=== PATIENT | female | born 1945 | race Caucasian/White ===

== ENCOUNTER 2019-06-09 07:30 | Inpatient (IN) | payer MEDICARE, OTHER ==
[2019-07-30 11:41] LABS: ABSOLUTE EOSINOPHILS # (AUTO) 0.1 10^3/uL (0.0-0.6); ABSOLUTE LYMPHOCYTES (AUTO) 1.9 10^3/uL (0.5-4.7); ABSOLUTE MONOCYTES (AUTO) 0.4 10^3/uL (0.1-1.4); ABSOLUTE NEUT (AUTO) 3.7 10^3/uL (1.7-8.2); BASOPHILS % (AUTO) 0.6 % (0-2); EOSINOPHILS % (AUTO) 1.4 % (0-6); HEMATOCRIT 37.7 % (36.0-47.0); HEMOGLOBIN 12.7 g/dL (12.0-15.5); LYMPHOCYTES % (AUTO) 30.5 % (13-45); MEAN CORPUSCULAR HGB CONC 33.8 g/dL (32.0-36.0); MEAN CORPUSCULAR VOLUME 98 fl (80-97); MONOCYTES % (AUTO) 6.4 % (3-13); PLATELET COUNT 311 10^3/uL (150-450); RED BLOOD COUNT 3.86 10^6/uL (3.72-5.28); RED CELL DISTRIBUTION WIDTH 13.9 % (11.5-14.0); SEGMENTED NEUTROPHILS % (AUTO) 61.1 % (42-78); TOTAL CELLS COUNTED % (AUTO) 100 %; WHITE BLOOD COUNT 6.1 10^3/uL (4.0-10.5)
[2019-07-30 11:59] LABS: ANION GAP 9 (5-19); BLOOD UREA NITROGEN 18 mg/dL (7-20); CALCIUM 9.9 mg/dL (8.4-10.2); CARBON DIOXIDE 29 mmol/L (22-30); CHLORIDE 101 mmol/L (98-107); GLUCOSE 103 mg/dL (75-110); POTASSIUM 4.6 mmol/L (3.6-5.0)
--- NOTE | 2019-07-30 13:01 | RADIOLOGY REPORT (SQ) ---
EXAM DESCRIPTION: CHEST PA/LATERAL IMAGES COMPLETED DATE/TIME: 07/30/2019 11:40 am REASON FOR STUDY: PRE-OP COMPARISON: None. EXAM PARAMETERS: NUMBER OF VIEWS: two views TECHNIQUE: Digital Frontal and Lateral radiographic views of the chest acquired. RADIATION DOSE: NA LIMITATIONS: none FINDINGS: LUNGS AND PLEURA: No opacities, masses or pneumothorax. No pleural effusion. MEDIASTINUM AND HILAR STRUCTURES: Deviation of the trachea to the right. HEART AND VASCULAR STRUCTURES: Heart normal size. No evidence for failure. BONES: No acute findings. HARDWARE: None in the chest. OTHER: No other significant finding. IMPRESSION: NO ACUTE RADIOGRAPHIC FINDING IN THE CHEST. THERE IS DEVIATION OF THE TRACHEA TO THE RI GHT. THIS MAY BE DUE TO SUBSTERNAL THYROID OR OTHER SOFT TISSUE MASS. MAY CONSIDER CT OF THE CHEST AND NECK FOR FURTHER EVALUATION. TECHNICAL DOCUMENTATION: JOB ID: [id number] 2010 [employer] All Rights Reserved Reading location - IP/workstation name: [email or web address]
--- NOTE | 2019-07-30 19:00 | EKG REPORT ---
SEVERITY:- OTHERWISE NORMAL ECG - SINUS RHYTHM BORDERLINE LEFT AXIS DEVIATION : Confirmed by: Jada Steven MD 30-Jul-2019 18:59:23
[2019-08-04] MEDS ORDERED: CEFAZOLIN 2 GM/D5W RTU 2 GM/50 ML RTUPB IV PRN (05:00)
[2019-08-04] MEDS ORDERED: LACTATED RINGERS 1000 ML IV PRN (05:00)
[2019-08-04] MEDS ORDERED: LIDOCAINE 0.5% INJ-PF (5 MG/ML) 50 ML SDV SUBCUT PRN (05:00)
[2019-08-04] MEDS ORDERED: CEFAZOLIN 2 GM/D5W RTU 2 GM/50 ML RTUPB IV ONE (05:18)
[2019-08-04] MEDS ORDERED: BUPIVACAINE INJ/PF LIPOSOME/PF 266 MG/20 ML SDV ONE (06:47)
[2019-08-04] MEDS ORDERED: HEPARIN SOD (PORCINE) 1,000 UNIT/ML 10 ML VIAL ONE (06:47)
[2019-08-04] MEDS ORDERED: MINERAL OIL (STERILE) 10 ML VIAL ONE (06:47)
[2019-08-04] MEDS ORDERED: BACITRACIN INJ 50,000 UNIT VIAL ONE (06:47)
[2019-08-04] MEDS ORDERED: FENTANYL CITRATE INJ/PF 100 MCG/2 ML AMPUL ONE ×2 (07:01→10:23)
[2019-08-04] MEDS ORDERED: HYDROMORPHONE HCL INJ/PF 2 MG/ML AMPULE ONE (07:01)
[2019-08-04] MEDS ORDERED: MIDAZOLAM 2 MG/2 ML INJ ONE (07:01)
[2019-08-04] MEDS ORDERED: LIDOCAINE 2% INJ-PF (20 MG/ML) 10 ML AMPUL ONE (07:01)
[2019-08-04] MEDS ORDERED: PROPOFOL 0 MG/0 ML INFUS..BTL IV ONE (07:02)
[2019-08-04] MEDS ORDERED: ONDANSETRON HCL INJ/PF 4 MG/2 ML SDV ONE ×2 (07:02→14:07)
[2019-08-04] MEDS ORDERED: DEXAMETHASONE SOD PHOSPHATE INJ 4 MG/1 ML VIAL ONE (07:02)
[2019-08-04] MEDS ORDERED: PROPOFOL INJ 200 MG/20 ML VIAL IV ONE (07:02)
[2019-08-04] MEDS ORDERED: PROPOFOL 1,000 MG/100 ML INFUS..BTL IV ONE (07:15)
[2019-08-04] MEDS ORDERED: GLUCAGON,HUMAN RECOMB 1 MG INJ IM PRN (07:43)
[2019-08-04] MEDS ORDERED: DEXTROSE 40% GEL 15 GM TUBE PO PRN ×2 (07:43)
[2019-08-04] MEDS ORDERED: DEXTROSE 50%-WATER 25 GM/50 ML DISP.SYRIN IV PRN ×2 (07:43)
[2019-08-04] MEDS ORDERED: MORPHINE SULFATE 10 MG/ML INJ IV PRN ×2 (07:47→07:51)
[2019-08-04] MEDS ORDERED: OXYCODONE-ACETAMINOPHEN 5-325 MG TABLET PO PRN ×2 (07:47)
[2019-08-04] MEDS ORDERED: PROMETHAZINE HCL INJ 25 MG/1 ML VIAL IV PRN ×2 (07:47)
[2019-08-04] MEDS ORDERED: FENTANYL CITRATE INJ/PF 100 MCG/2 ML AMPUL IV PRN ×3 (07:47)
[2019-08-04] MEDS ORDERED: MEPERIDINE HCL/PF INJ 25 MG/1 ML DISP.SYRIN IV PRN (07:47)
[2019-08-04] MEDS ORDERED: ACETAMINOPHEN 325 MG TABLET PO PRN (07:51)
[2019-08-04] MEDS ORDERED: HYDROCODONE/ACETAMINOPHEN 5-325 MG TABLET PO PRN (07:51)
[2019-08-04] MEDS ORDERED: ACETAMINOPHEN 650 MG SUPP.RECT PR PRN (07:58)
[2019-08-04] MEDS ORDERED: PROMETHAZINE HCL 25 MG TABLET PO PRN (07:58)
[2019-08-04] MEDS ORDERED: DIPHENHYDRAMINE HCL 25 MG CAPSULE PO PRN (07:58)
[2019-08-04] MEDS ORDERED: DIPHENHYDRAMINE HCL 50 MG/ML VIAL IV PRN (07:58)
[2019-08-04] MEDS ORDERED: BUPIVACAINE HCL 0.5 % INJ/PF 30 ML SDV ONE (08:12)
[2019-08-04] MEDS ORDERED: ACETAMINOPHEN 1,000 MG/100 ML RTUPB IV ONE (09:51)
[2019-08-04] MEDS ORDERED: METHOCARBAMOL INJ/PF 1000 MG/10 ML SDV ONE (09:59)
--- NOTE | 2019-08-04 10:30 | Operative Report ---
Operative Report DATE OF SURGERY: 08/04/19 PREOPERATIVE DIAGNOSIS: L4 5 spondylolisthesis stenosis generative disc disease back pain and radiculitis POSTOPERATIVE DIAGNOSIS: L4 5 spondylolisthesis stenosis generative disc disease back pain and radiculitis OPERATION: L4-5 anterior lateral interbody fusion with interbody spacer placement left iliac crest aspiration through a separate incision for bone marrow aspirate concentration allografting as well as posterior fusion robotically assisted at L4-5 and instrumentation. SURGEON: VANESSA BOYLE EXPERIMENTAL MECHANIC ELECTRICAL: JESS DONOVAN ANESTHESIA: GA ESTIMATED BLOOD LOSS: 100 cc of blood loss PROCEDURE: Patient is brought into the room placed under general anesthesia received 2 g of Ancef within 1 hour of cut time was placed on the Javon table medial epicondyles and axillary areas are well-padded. Neuro monitoring leads for SSEP and cranial motor testing are placed on the patient as well as a Turner catheter is placed preoperatively. After appropriate surgical timeout the [employer] robot is utilized and on the right posterior superior iliac spine a pin is placed and attached to the robot. After obtaining registration imaging in the AP and oblique position and verification 6.5 x 45 mm screws are inserted using portal incisions on the right and the left at L4 and L5 bilaterally. Left iliac crest is aspirated at 2 different sites total of 50 cc of bone marrow aspirate are obtained and concentrated to be used an interbody spacer with the allograft. Attention was then paid to the left sided anterior lateral portal for entry into the disc space which is carried out under navigation guidance upon verification also with x-rays and then stimulation thresholds greater than 17 mA. Upon inserting the portal into the disc space at L4-5 fluoroscopy was used to verify the position as it did also to verify the screws position. Endplate romeo and curettes and brushes are used to carry out a complete discectomy then the verify balloon is inserted to verify good contact with the endplates. Then the appropriate size mesh spacer is introduced into the interbody. Incite Allograft is first inserted mixed with concentrate allograft and bone marrow aspirate.the mesh spacer is soaked in bone marrow aspirate concentrate and is filled with bone graft showing good correction and good containment within the disc space at L4-5. Upon neuro monitoring testing and cranial motor testing found to be stable then the portal is removed anterior laterally and attention is then paid to the placement of the rods upon using the caliper device the appropriate length rods were determined to be 40 mm rods on the right and on the left those are passed down and locked into position and final tightened. Then the tabs are removed and the portals are irrigated with copious amounts of irrigation and the posterior superior iliac spine pin connected to the robot is removed as well and the deep and superficial tissues were infiltrated with 1.3% Exparel 20 cc mixed with 20 cc of 0.5% bupivacaine plain. The portals are closed using 2-0 Vicryl and then Dermabond and Steri-Strips then 4 x 4's were used to cover the wounds on the right and the left and dressed with coverall tape. Please note that this procedure could not be done without the assistance of Abraham Trujillo working to assist with the placement of the screws positioning of the robot carrying out the aspiration through the left side iliac crest aspiration please also note that the iliac crest aspiration is carried out on the left side through a separate incision. Abraham Trujillo was instrumental throughout this whole process and I could not have done this procedure without his assistance as mentioned above.
[2019-08-04] MEDS ORDERED: [UNRECOGNIZED DRUG - OTHER] PO SCH (11:27)
[2019-08-04] MEDS ORDERED: (PENDING PHARMACY ID) (Omeprazole [Omeprazole] 1 CAP) PO SCH (11:27)
[2019-08-04] MEDS ORDERED: VITAMIN D3 PO SCH (11:27)
[2019-08-04] MEDS ORDERED: CALCIUM CARBONATE PO SCH (11:27)
[2019-08-04] MEDS: INSULIN LISPRO 100 UNIT/ML 3 ML VIAL SUBCUT SCH ×3 (11:34→23:15)
[2019-08-04] MEDS: RINGERS SOLUTION,LACTATED 1,000 ML IV PRN (11:35)
[2019-08-04] MEDS: FAMOTIDINE 20 MG TABLET PO SCH ×2 (11:54→17:18)
[2019-08-04] MEDS: SENNOSIDES/DOCUSATE 8.6-50 MG 1 EACH TABLET PO SCH ×2 (11:54→17:18)
--- NOTE | 2019-08-04 12:10 | RADIOLOGY REPORT (SQ) ---
EXAM DESCRIPTION: NO CHG FLUORO; L SPINE 2 VIEWS IMAGES COMPLETED DATE/TIME: 08/04/2019 10:21 am REASON FOR STUDY: LUMBAR FUSION ASSISTED WITH FLUORO IN OR COMPARISON: None. FLUOROSCOPY TIME: 1.3 minutes 2 Images saved to PACS LIMITATIONS: None. PROCEDURE: Lumbar fusion FINDINGS: Images from fluoro document the procedure. IMPRESSION: Lumbar fusion. Refer to operative note for further information. COMMENT: PQRS 6045F: Fluoroscopy time of the procedure is documented in the report. TECHNICAL DOCUMENTATION: JOB ID: [id number] 2010 [employer]- All Rights Reserved Reading location - IP/workstation name: [email or web address]
--- NOTE | 2019-08-04 12:10 | RADIOLOGY REPORT (SQ) ---
EXAM DESCRIPTION: NO CHG FLUORO; L SPINE 2 VIEWS IMAGES COMPLETED DATE/TIME: 08/04/2019 10:21 am REASON FOR STUDY: LUMBAR FUSION ASSISTED WITH FLUORO IN OR COMPARISON: None. FLUOROSCOPY TIME: 1.3 minutes 2 Images saved to PACS LIMITATIONS: None. PROCEDURE: Lumbar fusion FINDINGS: Images from fluoro document the procedure. IMPRESSION: Lumbar fusion. Refer to operative note for further information. COMMENT: PQRS 6045F: Fluoroscopy time of the procedure is documented in the report. TECHNICAL DOCUMENTATION: JOB ID: [id number] 2010 [employer]- All Rights Reserved Reading location - IP/workstation name: [email or web address]
[2019-08-04] MEDS: GABAPENTIN 300 MG CAPSULE PO SCH ×3 (12:30→17:18)
[2019-08-04] MEDS: HYDROCODONE/ACETAMINOPHEN 10-325 MG TABLET PO PRN ×2 (13:23→23:48)
[2019-08-04] MEDS ORDERED: CEFAZOLIN 2 GM/D5W RTU 2 GM/50 ML RTUPB IV SCH (14:00)
[2019-08-04] MEDS ORDERED: METFORMIN HCL PO SCH (14:00)
[2019-08-04] MEDS ORDERED: PHENYLEPHRINE HCL INJ/PF 10 MG/1 ML SDV ONE (14:07)
[2019-08-04] MEDS: METHOCARBAMOL 500 MG TABLET PO SCH ×2 (14:14→23:26)
[2019-08-04] MEDS: CEFAZOLIN SODIUM 2 GM in DEXTROSE 5%-WATER 100 ML IV SCH ×2 (14:14→23:15)
[2019-08-04] MEDS: CARBOXYMETHYLCELLULOSE SOD 0.5% 0.4 ML DROPERETTE OU PRN ×2 (15:02→23:18)
[2019-08-05] MEDS: METHOCARBAMOL 500 MG TABLET PO SCH ×3 (06:00→22:16)
[2019-08-05] MEDS: HYDROCODONE/ACETAMINOPHEN 10-325 MG TABLET PO PRN ×3 (06:00→14:43)
[2019-08-05] MEDS: CARBOXYMETHYLCELLULOSE SOD 0.5% 0.4 ML DROPERETTE OU PRN ×2 (06:02→22:18)
[2019-08-05] MEDS: INSULIN LISPRO 100 UNIT/ML 3 ML VIAL SUBCUT SCH ×4 (09:20→22:13)
[2019-08-05] MEDS: FAMOTIDINE 20 MG TABLET PO SCH ×2 (09:27→17:16)
[2019-08-05] MEDS: SENNOSIDES/DOCUSATE 8.6-50 MG 1 EACH TABLET PO SCH ×2 (09:27→17:16)
[2019-08-05] MEDS: LISINOPRIL 10 MG TABLET PO SCH (09:27)
[2019-08-05] MEDS: METFORMIN HCL 500 MG TABLET PO SCH (09:27)
[2019-08-05] MEDS: CALCIUM CARBONATE 600 MG/VITAMIN D3 400 UNIT TABLET PO SCH (09:28)
[2019-08-05] MEDS: GABAPENTIN 300 MG CAPSULE PO SCH ×3 (09:28→17:15)
[2019-08-05] MEDS: HYDROCHLOROTHIAZIDE 12.5 MG TABLET PO SCH (09:28)
[2019-08-05] MEDS: PANTOPRAZOLE SODIUM 20 MG TABLET.DR PO SCH (09:28)
[2019-08-05] MEDS: RINGERS SOLUTION,LACTATED 1,000 ML IV PRN (09:29)
[2019-08-05] MEDS ORDERED: [UNRECOGNIZED DRUG - OTHER] PO SCH (10:00)
[2019-08-05] MEDS ORDERED: (PENDING PHARMACY ID) (Lisinopril/Hydrochlorothiazide [Lisinopril-Hctz 10-12.5 Mg Tab] 1 T PO SCH (10:00)
[2019-08-06] MEDS: HYDROCODONE/ACETAMINOPHEN 10-325 MG TABLET PO PRN ×2 (03:40→09:17)
[2019-08-06] MEDS: METHOCARBAMOL 500 MG TABLET PO SCH (05:44)
[2019-08-06] MEDS: INSULIN LISPRO 100 UNIT/ML 3 ML VIAL SUBCUT SCH ×2 (07:49→12:27)
[2019-08-06] MEDS: PANTOPRAZOLE SODIUM 20 MG TABLET.DR PO SCH (07:50)
--- NOTE | 2019-08-06 08:17 | PDOC PROGRESS REPORT ---
Subjective Progress Note for:: 08/05/19 Subjective:: POD 1 : patient reports that she is doing well. Patient is laying in bed at time of exam. Reports that she is eating and drinking and reports no issues with bladder function. She reports that she is progressing well with PT. Patient reports that she feels improvement in strength on the left Reason For Visit: SURGERY,L4-L5 SPONDYLOLISTHEISIS,DEGENERATIVE Physical Exam Vital Signs: Temp Pulse Resp BP Pulse Ox 98.8 F 95 16 123/69 96 08/05/19 10:49 08/05/19 10:49 08/05/19 10:49 08/05/19 10:49 08/05/19 10:49 Intake & Output 08/04/19 08/05/19 08/06/19 06:59 06:59 06:59 Intake Total 0 1810 1580 Output Total 1610 450 Balance 0 200 1130 Weight 77.5 kg General appearance: PRESENT: no acute distress, cooperative Eye exam: PRESENT: EOMI, PERRLA Ear exam: PRESENT: normal external ear exam Mouth exam: PRESENT: moist Pulses: PRESENT: normal dorsalis pedis pul, +2 pedal pulses bilateral Vascular exam: PRESENT: normal capillary refill Musculoskeletal exam: PRESENT: other - Dressing reveals mild bloody drainage on the right. Moves feet without difficulty with noted weakness on the left. normal post-op tenderness is appreciated. Results Laboratory Results: 07/30/19 11:10 08/04/19 06:06 Impressions: Chest X-Ray 07/30/19 00:00 IMPRESSION: NO ACUTE RADIOGRAPHIC FINDING IN THE CHEST. THERE IS DEVIATION OF THE TRACHEA TO THE RIGHT. THIS MAY BE DUE TO SUBSTERNAL THYROID OR OTHER SOFT TISSUE MASS. MAY CONSIDER CT OF THE CHEST AND NECK FOR FURTHER EVALUATION. Fluoroscopy 08/04/19 00:00 IMPRESSION: Lumbar fusion. Refer to operative note for further information. Lumbar Spine X-Ray 08/04/19 00:00 IMPRESSION: Lumbar fusion. Refer to operative note for further information. Assessment & Plan - Diagnosis (1) Spondylisthesis Qualifiers: Spinal region: lumbar Qualified Code(s): M43.16 - Spondylolisthesis, lumbar region Is this a current diagnosis for this admission?: Yes - Time Time Spent with patient: Less than 15 minutes - Plan Summary Plan Summary: POD 1 reinforce dressing as needed progress with PT per protocol ok to D/C home when cleared by PT follow up in ortho clinic in 7-10 days will continue to follow
--- NOTE | 2019-08-06 08:37 | PDOC DISCHARGE SUMMARY ---
General - Admit/Disc Date/PCP Admission Date/Primary Care Provider: Patient's admitting diagnosis includes spinal listhesis L4-5 stenosis L4-5 degenerative disc disease back pain and radiculitis Discharge Date: 08/06/19 - Discharge Diagnosis Final Diagnosis: Spinal listhesis L4-5 general disc disease L4-5 status post anterior lateral interbody fusion and posterior fusion robotically assisted L4-5 - Additional Information Resuscitation Status: Full Code Discharge Diet: As Tolerated Discharge Activity: No Driving, No Lifting Over 10 Pounds, Walk Frequently Referrals: MIC CAGE DO [ACTIVE STAFF] - (Outpatient follow-up from hospital consult.) VANESSA ORTEGA MD [ASSOCIATE] - Home Medications: Calcium Carbonate/Vitamin D3 [Calcium 500 mg Chewable Tablet] 2 tab PO BID 07/30/19 Cinnamon 1 cap PO DAILY 07/30/19 Gabapentin [Neurontin 300 mg Capsule] 300 mg PO BID 07/30/19 Metformin HCl [Metformin ER Osmotic] 1,000 mg PO DAILY 07/30/19 Methocarbamol [Robaxin 500 mg Tablet] 100 mg PO BID 07/30/19 Omeprazole 20 mg PO DAILY 07/30/19 Pregabalin [Lyrica 50 mg Capsule] 50 mg PO BID 07/30/19 Aspirin [Adult Low Dose Aspirin EC] 81 mg PO DAILY 08/04/19 Ergocalciferol (Vitamin D2) [Vitamin D2] 50,000 unit PO ASDIR 08/04/19 Lisinopril/Hydrochlorothiazide [Lisinopril-Hctz 20-12.5 mg Tab] 1 tab PO DAILY 08/04/19 Multivitamin 1 each PO DAILY 08/04/19 Boaz-3 Fatty Acids/Fish Oil [Boaz 3 Fish Oil Softgel] 1 each PO DAILY 08/04/19 Ondansetron [Zofran Odt 4 mg Tablet] 4 mg PO Q6HP PRN 08/04/19 Potassium &Magnesium Aspartate [Ra Potassium-Magnesium Asp 250] 1 each PO QHS 08/04/19 Sitagliptin Phosphate [Januvia 50 mg Tablet] 100 mg PO DAILY 08/04/19 Vit C/Vit E AC/Lut/Copper/Zinc [Preservision Lutein Softgel] 1 each PO DAILY 08/04/19 Vitamin B Complex/Folic Acid [B Complex Formula #1 Tablet] 0.4 mg PO DAILY 08/04/19 History of Present Illiness History of Present Illness: AMIE ARREGUIN is a 74 year old female Physical Exam Vital Signs: Temp Pulse Resp BP Pulse Ox 99.9 F 97 16 124/72 96 08/06/19 00:19 08/06/19 00:19 08/06/19 00:19 08/06/19 00:19 08/06/19 00:19 Intake & Output 08/05/19 08/06/19 08/07/19 06:59 06:59 06:59 Intake Total 1810 1780 Output Total 1610 690 Balance 200 1090 Weight 77.5 kg 74.5 kg Results Laboratory Results: WBC 6.1 10^3/uL (4.0-10.5) 07/30/19 11:10 RBC 3.86 10^6/uL (3.72-5.28) 07/30/19 11:10 Hgb 12.7 g/dL (12.0-15.5) 07/30/19 11:10 Hct 37.7 % (36.0-47.0) 07/30/19 11:10 MCV 98 fl (80-97) H 07/30/19 11:10 MCH 33.0 pg (27.0-33.4) 07/30/19 11:10 MCHC 33.8 g/dL (32.0-36.0) 07/30/19 11:10 RDW 13.9 % (11.5-14.0) 07/30/19 11:10 Plt Count 311 10^3/uL (150-450) 07/30/19 11:10 Lymph % (Auto) 30.5 % (13-45) 07/30/19 11:10 [place] % (Auto) 6.4 % (3-13) 07/30/19 11:10 Eos % (Auto) 1.4 % (0-6) 07/30/19 11:10 Baso % (Auto) 0.6 % (0-2) 07/30/19 11:10 Absolute Neuts (auto) 3.7 10^3/uL (1.7-8.2) 07/30/19 11:10 Absolute Lymphs (auto) 1.9 10^3/uL (0.5-4.7) 07/30/19 11:10 Absolute Monos (auto) 0.4 10^3/uL (0.1-1.4) 07/30/19 11:10 Absolute Eos (auto) 0.1 10^3/uL (0.0-0.6) 07/30/19 11:10 Absolute Basos (auto) 0.0 10^3/uL (0.0-0.2) 07/30/19 11:10 Seg Neutrophils % 61.1 % (42-78) 07/30/19 11:10 Sodium 139.0 mmol/L (137-145) 07/30/19 11:10 Potassium 4.0 mmol/L (3.6-5.0) 08/04/19 06:06 Chloride 101 mmol/L (98-107) 07/30/19 11:10 Carbon Dioxide 29 mmol/L (22-30) 07/30/19 11:10 Anion Gap 9 (5-19) 07/30/19 11:10 BUN 18 mg/dL (7-20) 07/30/19 11:10 Creatinine 0.79 mg/dL (0.52-1.25) 07/30/19 11:10 Est GFR ( Amer) > 60 (>60) 07/30/19 11:10 Est GFR (MDRD) Non-Af > 60 (>60) 07/30/19 11:10 Glucose 112 mg/dL (75-110) H 08/04/19 06:06 POC Glucose 128 mg/dL (70-110) H 08/06/19 06:36 Calcium 9.9 mg/dL (8.4-10.2) 07/30/19 11:10 COVID-19 Source NASOPHARYNGEAL 07/30/19 11:05 COVID-19 (PHILLIP) NOT DETECTED 07/30/19 11:05 Blood Type A POSITIVE 08/04/19 06:06 Antibody Screen NEGATIVE 08/04/19 06:06 Impressions: Chest X-Ray 07/30/19 00:00 IMPRESSION: NO ACUTE RADIOGRAPHIC FINDING IN THE CHEST. THERE IS DEVIATION OF THE TRACHEA TO THE RIGHT. THIS MAY BE DUE TO SUBSTERNAL THYROID OR OTHER SOFT TISSUE MASS. MAY CONSIDER CT OF THE CHEST AND NECK FOR FURTHER EVALUATION. Fluoroscopy 08/04/19 00:00 IMPRESSION: Lumbar fusion. Refer to operative note for further information. Lumbar Spine X-Ray 08/04/19 00:00
[2019-08-06] MEDS: SENNOSIDES/DOCUSATE 8.6-50 MG 1 EACH TABLET PO SCH (09:17)
[2019-08-06] MEDS: LISINOPRIL 10 MG TABLET PO SCH (09:18)
[2019-08-06] MEDS: HYDROCHLOROTHIAZIDE 12.5 MG TABLET PO SCH (09:18)
[2019-08-06] MEDS: FAMOTIDINE 20 MG TABLET PO SCH (09:18)
[2019-08-06] MEDS: METFORMIN HCL 500 MG TABLET PO SCH (09:18)
[2019-08-06] MEDS: GABAPENTIN 300 MG CAPSULE PO SCH (09:18)
[2019-08-06] MEDS: CALCIUM CARBONATE 600 MG/VITAMIN D3 400 UNIT TABLET PO SCH (09:19)
[2019-08-06 11:01] VITALS: BP 130/72
== END 2019-08-06 12:26 | disposition home or self-care (01) | DRG 455 ==
LOC: INOR 08-04 05:20 → 4S 08-04 11:26
PROVIDERS: ADMIT Orthopaedic Surgery; ATTEND Orthopaedic Surgery
PROC: 0SG00K1 Fusion of Lumbar Vertebral Joint with Nonautologous Tissue Substitute, Posterior Approach, Posterior Column, Open Approach (ICD-10-PCS; 2019-08-04)
PROC: 0ST20ZZ Resection of Lumbar Vertebral Disc, Open Approach (ICD-10-PCS; 2019-08-04)
PROC: 07DR3ZZ Extraction of Iliac Bone Marrow, Percutaneous Approach (ICD-10-PCS; 2019-08-04)
PROC: 8E0W0CZ Robotic Assisted Procedure of Trunk Region, Open Approach (ICD-10-PCS; 2019-08-04)
PROC: 0SG00A0 Fusion of Lumbar Vertebral Joint with Interbody Fusion Device, Anterior Approach, Anterior Column, Open Approach (ICD-10-PCS; principal; 2019-08-04 07:30)
DX: M43.16 Spondylolisthesis, lumbar region (principal); M54.16 Radiculopathy, lumbar region; M48.062 Spinal stenosis, lumbar region with neurogenic claudication; M51.36 Other intervertebral disc degeneration, lumbar region; M54.40 Lumbago with sciatica, unspecified side; E11.9 Type 2 diabetes mellitus without complications; Z79.84 Long term (current) use of oral hypoglycemic drugs; Z79.899 Other long term (current) drug therapy; Z03.818 Encounter for observation for suspected exposure to other biological agents ruled out
CPT/HCPCS: 00630; 36415; 71046; 72100; 80048; 82947; 82962; 84132; 85025; 86850; 86900; 86901; 87070; 87635; 93005; 93010; 94760; 94799; C9290; C9803; J0131; J0690; J1100; J1170; J1644; J1815; J2250; J2370; J2405; J2704; J2800; J3010; J3490; J7060; J7120